=== PATIENT | female | born 1935 | race Caucasian/White ===

== ENCOUNTER → 2016-05-15 | Outpatient (CLI) | payer MEDICARE, OTHER ==
[~2016-05-15] MED LIST: AMLO5TAB4 PO; ASPI325T32 PO; CHOL100062 PO; FERR1TAB14 PO; FOLI-49 PO; HYDR-905 PO; LUTE20TA PO; LYRI25 PO; OMEG-80 PO; PANT40TA4 PO; PRAV80TA27 PO; ULT50 PO
== END | disposition home or self-care (01) ==
LOC: HKI 09:26
PROVIDERS: ATTEND Orthopaedic Surgery
DX: Z47.1 Aftercare following joint replacement surgery (principal); I10 Essential (primary) hypertension; Z96.652 Presence of left artificial knee joint; Z88.0 Allergy status to penicillin; Z88.2 Allergy status to sulfonamides; Z88.8 Allergy status to other drugs, medicaments and biological substances; Z86.73 Personal history of transient ischemic attack (TIA), and cerebral infarction without residual deficits; Z85.3 Personal history of malignant neoplasm of breast
CPT/HCPCS: G0463

== ENCOUNTER → 2016-06-12 | Outpatient (CLI) | payer MEDICARE, OTHER ==
[~2016-06-12] MED LIST changes: +TRAM50TA2 PO; -ULT50 PO
== END | disposition home or self-care (01) ==
LOC: HKI 09:52
PROVIDERS: ATTEND Orthopaedic Surgery
DX: Z47.1 Aftercare following joint replacement surgery (principal); M17.12 Unilateral primary osteoarthritis, left knee; E78.5 Hyperlipidemia, unspecified; I10 Essential (primary) hypertension; Z85.3 Personal history of malignant neoplasm of breast; Z96.652 Presence of left artificial knee joint; Z88.0 Allergy status to penicillin; Z88.2 Allergy status to sulfonamides
CPT/HCPCS: G0463

== ENCOUNTER → 2016-07-22 | Outpatient (CLI) | payer MEDICARE, OTHER ==
--- NOTE | 2016-07-22 17:51 | RADRPT ---
PROCEDURE: Left knee radiographs. CLINICAL INDICATION: Left knee pain. Postop. TECHNIQUE: Three views. Weight bearing. Frontal, lateral, and patellar view. COMPARISON: 05/05/2016. FINDINGS: There is no fracture or dislocation. The surgical drain has been removed. 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 There is no lytic or blastic lesion. Vascular calcifications are present consistent with atherosclerosis. IMPRESSION: 1. Satisfactory postoperative appearance of the left knee. RPTAT: QQ .Cash Gomez MD, MD Date Time Electronically viewed and signed by .Cash Gomez MD, on 07/22/2016 17:50 .R/
== END | disposition home or self-care (01) ==
LOC: HKI 09:48
PROVIDERS: ATTEND Orthopaedic Surgery
DX: Z47.1 Aftercare following joint replacement surgery (principal); M17.12 Unilateral primary osteoarthritis, left knee; Z96.652 Presence of left artificial knee joint

== ENCOUNTER → 2016-11-02 | Outpatient (CLI) | payer MEDICARE, OTHER ==
--- NOTE | 2016-11-02 17:18 | RADRPT ---
PROCEDURE: Left knee radiographs. CLINICAL INDICATION: Left knee pain. Postop. TECHNIQUE: Four views. Weight bearing. Frontal, lateral, oblique, and patellar view. COMPARISON: 07/22/2016. FINDINGS: There is no fracture or dislocation. The soft tissues are normal. There is a total left knee constrained arthroplasty which appears satisfactory. There is no lytic or blastic lesion. There is no joint effusion. IMPRESSION: 1. Satisfactory postoperative appearance of the left knee. RPTAT: QQ .Cash Gomez MD, MD Date Time Electronically viewed and signed by .Cash Gomez MD, on 11/02/2016 17:18 .R/
== END | disposition home or self-care (01) ==
LOC: HKI 10:20
PROVIDERS: ATTEND Orthopaedic Surgery
DX: M25.562 Pain in left knee (principal); Z96.652 Presence of left artificial knee joint
CPT/HCPCS: 73564; G0463